=== PATIENT | male | born 1960 ===

== ENCOUNTER 2016-12-08 07:21 | Day surgery (SDC) | payer OTHER ==
[2016-11-30 16:51] VITALS: BMI 34.9
[2016-12-08] MEDS ORDERED: Iodixanol 320 MG/ML 200 ML BOTTLE IV ONE ×2 (10:23→11:43)
[2016-12-08] MEDS ORDERED: Midazolam 2 MG/2 ML VIAL ONE (10:30)
[2016-12-08] MEDS ORDERED: Nitroglycerin 50mg in D5W 0 MG/0 ML BOTTLE IV ONE (11:07)
--- NOTE | 2016-12-08 13:03 | CP.SDSHP ---
Same Day Surgery H & P - History Proposed Procedure: see enclosed consult to note. - Allergies Allergies: Allergies No Known Allergies Allergy (Verified 11/30/16 16:55) Short Stay Discharge - Short Stay Discharge Admitting Diagnosis/Reason for Visit: PERIPHERAL VASCULAR DISEASE Disposition: HOME/ ROUTINE
[2016-12-08 16:48] VITALS: RESP 25; O2SAT 100
--- NOTE | 2016-12-08 20:34 | OP ---
PERIPHERAL ANGIOGRAM AND INTERVENTION REPORT PROCEDURE DATE: 12/08/2016 PREOPERATIVE DIAGNOSIS: Peripheral vascular disease with nonhealing amputation site of the right foot. POSTOPERATIVE DIAGNOSIS: Peripheral vascular disease with nonhealing amputation site of the right foot. PROCEDURE PERFORMED: Retrograde access of left common femoral artery, selective catheter placement in the right peroneal artery via contralateral approach, abdominal aortography, bilateral iliofemoral runoff, bilateral lower extremity angiography, angioplasty right tibioperoneal trunk and right peroneal artery. COMPLICATIONS: None. SURGEON: Gwen Ly MD TYPE OF ANESTHESIA: Conscious sedation with Versed. HISTORY: The patient is a 56-year-old male with past medical history of end-stage renal disease, on hemodialysis; hypertension; hypercholesteremia; diabetes mellitus with peripheral vascular disease. The patient has undergone previous endovascular intervention in [facility]. He required first ray amputation. The amputation site has been slow to heal for the past month. Consultation is requested. DESCRIPTION OF PROCEDURE: After obtaining informed consent, the patient was prepped and draped in usual sterile fashion. The left groin was anesthetized with 2% lidocaine solution. A 5-Sinhala sheath was advanced into left common femoral artery via modified Seldinger technique. The OmniFlush catheter was advanced to infrarenal abdominal aorta. The abdominal aortography was performed. The catheter was then positioned at the iliac bifurcation. Bilateral iliofemoral runoff was performed. Selective angiography was performed, which is described separately below followed by intervention. FINDINGS: The inferior abdominal aorta is free of aneurysm or dissection. Bilateral renal arteries were rise normally and free of significant disease. There is no significant inflow stenosis of the iliofemoral system. There is eccentric calcification of bilateral superficial femoral arteries. [id number] atherosclerosis is noted of bilateral superficial femoral arteries with a 60% stenosis in the mid vessel. The right popliteal artery has mild disease. There is a 95% stenoses of the right tibioperoneal trunk. A sequential 95% stenoses and a 90% stenosis is noted within the proximal right peroneal artery. A single vessel runoff via the right peroneal artery to the foot. The anterior tibial and posterior tibial arteries are occluded 100%. In the left leg, there is single vessel runoff via the left anterior tibial artery to the foot. INTERVENTION: The patient is anticoagulated with heparin to achieve a therapeutic activated clotting time. The OmniFlush catheter was used to advance to the contralateral right common femoral artery. The OmniFlush and the sheath were then exchanged for a 6 x 45 cm cook sheath. Anticoagulation with heparin was given. An Keduo guidewire was loaded onto a 3.0 x 80 mm balloon. The guidewire was advanced across the sequential stenoses in the tibioperoneal trunk and peroneal artery and was positioned in the distal right peroneal artery. The balloon was advanced and selectively placed in the proximal peroneal artery for support. The balloon was then positioned across the sequential stenoses and prolonged balloon angioplasty was performed. The old lesions were accessed. There was no significant residual stenoses. The guidewire and balloon were removed. There is brisk antegrade flow noted to the right foot. The guidewire and balloon were then removed. Completion angiography was performed via the sheath and left common femoral artery. The sheath was removed and an Enseal device was deployed successfully to achieve hemostasis without complications. CONCLUSION: 1. Severe tibioperoneal disease of the right lower extremity. 2. Successful balloon angioplasty of the right tibioperoneal artery and right peroneal artery. PLAN: The patient will continue with antiplatelet therapy. He will be transferred back to [place] and local wound care will be applied to the right foot. Gwen Ly MD
== END 2016-12-08 13:00 | disposition short-term general hospital (02) ==
LOC: C.CATHLAB 07:21
PROVIDERS: ATTEND Internal Medicine Cardiovascular Disease
DX: E11.51 Type 2 diabetes mellitus with diabetic peripheral angiopathy without gangrene (principal); E11.22 Type 2 diabetes mellitus with diabetic chronic kidney disease; I12.0 Hypertensive chronic kidney disease with stage 5 chronic kidney disease or end stage renal disease; N18.6 End stage renal disease; Z99.2 Dependence on renal dialysis; E78.00 Pure hypercholesterolemia, unspecified; T87.89 Other complications of amputation stump; Y83.5 Amputation of limb(s) as the cause of abnormal reaction of the patient, or of later complication, without mention of misadventure at the time of the procedure
CPT/HCPCS: 36247; 37228; 75625; 75716; 75774; 82948; 94770; C1725; C1760; C1766; C1769; C1887; J0360; J1644; J2250; J3010; Q9966; Q9967